=== PATIENT | female | born 1985 | race African-American/Black ===

== ENCOUNTER 2019-05-11 07:46 | Emergency (ER) | payer MEDICARE, MEDICAID ==
[~2019-05-11] VITALS: Ht 177.8 cm; Wt 95.0 kg
[2019-05-11] MEDS ORDERED: KETOROLAC 60MG/2ML VIAL IM ONE (08:15)
[2019-05-11 08:23] VITALS: BP 101/50
== END 2019-05-11 09:52 | disposition home or self-care (01) ==
LOC: ER 07:46
DX: S83.8X1A Sprain of other specified parts of right knee, initial encounter (principal); S93.491A Sprain of other ligament of right ankle, initial encounter; W18.39XA Other fall on same level, initial encounter; Y93.89 Activity, other specified; Y92.89 Other specified places as the place of occurrence of the external cause; Y99.8 Other external cause status; F17.200 Nicotine dependence, unspecified, uncomplicated; F41.9 Anxiety disorder, unspecified; Z88.0 Allergy status to penicillin
CPT/HCPCS: 73590; 96372; 99283; J1885

== ENCOUNTER 2019-08-04 22:32 | Emergency (ER) | payer MEDICARE, MEDICAID ==
[~2019-08-04] VITALS: Ht 167.6 cm; Wt 94.0 kg
[2019-08-04] MEDS ORDERED: HYDROCODONE/ACETAMINOPHEN 5/325MG TABLET PO ONE (23:15)
[2019-08-05] MEDS ORDERED: KETOROLAC 30MG/ML VIAL IM ONE (00:30)
[2019-08-05 00:37] VITALS: BP 123/46
== END 2019-08-05 00:54 | disposition home or self-care (01) ==
LOC: ER 22:32
DX: S90.01XA Contusion of right ankle, initial encounter (principal); S90.31XA Contusion of right foot, initial encounter; W01.0XXA Fall on same level from slipping, tripping and stumbling without subsequent striking against object, initial encounter; Y93.89 Activity, other specified; Y92.89 Other specified places as the place of occurrence of the external cause; Y99.8 Other external cause status; I10 Essential (primary) hypertension; Z88.0 Allergy status to penicillin
CPT/HCPCS: 73610; 73630; 96372; 99283; J1885

== ENCOUNTER 2019-10-08 07:51 | Emergency (ER) | payer MEDICARE, MEDICAID ==
[~2019-10-08] VITALS: Ht 167.6 cm; Wt 60.0 kg
[2019-10-08 07:55] VITALS: BP 133/83
== END 2019-10-08 09:02 | disposition left against medical advice (07) ==
LOC: ER 08:13
DX: Z53.21 Procedure and treatment not carried out due to patient leaving prior to being seen by health care provider (principal)